=== PATIENT | male | born 1945 | race Caucasian/White ===

== ENCOUNTER 2021-03-05 13:22 | Day surgery (SDC) | payer MEDICARE, OTHER ==
[~2021-03-05] VITALS: Ht 175.3 cm; Wt 55.5 kg
[2021-03-05] MEDS ORDERED: ST. JOSEPH ASPI81 M1 (13:52)
[2021-03-05] MEDS ORDERED: ATOR10 (13:52)
--- NOTE | 2021-03-05 14:01 | NUR ---
03/05/21 1401 Pamela Lee 1 TRY RIGHT HAND BLEW
== END 2021-03-05 16:32 | disposition home or self-care (01) ==
LOC: ORSCSDS 13:22
PROVIDERS: Surgery
PROC: 0DBK8ZX Excision of Ascending Colon, Via Natural or Artificial Opening Endoscopic, Diagnostic (ICD-10-PCS; principal; 2021-03-05 14:45)
PROC: 0DBH8ZX Excision of Cecum, Via Natural or Artificial Opening Endoscopic, Diagnostic (ICD-10-PCS; principal; 2021-03-05 14:45)
PROC: 3E0H8KZ Introduction of Other Diagnostic Substance into Lower GI, Via Natural or Artificial Opening Endoscopic (ICD-10-PCS; principal; 2021-03-05 14:45)
PROC: 0DBM8ZX Excision of Descending Colon, Via Natural or Artificial Opening Endoscopic, Diagnostic (ICD-10-PCS; principal; 2021-03-05 14:45)
PROC: 0DBN8ZX Excision of Sigmoid Colon, Via Natural or Artificial Opening Endoscopic, Diagnostic (ICD-10-PCS; principal; 2021-03-05 14:45)
DX: R19.4 Change in bowel habit (principal); C82.00 Follicular lymphoma grade I, unspecified site; D12.0 Benign neoplasm of cecum; K64.8 Other hemorrhoids; F17.210 Nicotine dependence, cigarettes, uncomplicated; J44.9 Chronic obstructive pulmonary disease, unspecified; I10 Essential (primary) hypertension; Z79.899 Other long term (current) drug therapy
CPT/HCPCS: 88305; 88341; 88342; J0330; J0461; J2405; J2704; J7120

== ENCOUNTER 2022-01-05 10:50 | Inpatient (IN) | payer MEDICARE, OTHER ==
[~2022-01-05] VITALS: Ht 175.3 cm; Wt 46.7 kg
[~2022-01-05 10:50] MED LIST: ATOR10; ST. JOSEPH ASPI81 M1
[2022-01-05 11:23] LABS: Base Excess Venous 9.9 mmol/L; Bicarbonate Venous 28.6 mmol/L (24.0-30.0); PCO2 Venous 102 mmHg (38-42); PO2 Venous 42.2 mmHg (38-42)
[2022-01-05 11:26] LABS: pH Blood Venous 7.18 (7.34-7.37)
[2022-01-05 11:40] LABS: BASOPHILS ABSOLUTE AUTO 0.01 K/mm3 (0.00-0.23); BASOPHILS PERCENT AUTO 0 % (0-2); EOSINOPHILS PERCENT AUTO 0 % (0-6); Hematocrit 47.2 % (37.0-53.0); Hemoglobin 14.9 g/dL (13.5-17.5); IMMATURE GRAN ABSOLUTE AUTO 0.03 K/mm3 (0.00-0.10); IMMATURE GRAN PERCENT AUTO 0 % (0-1); LYMPHOCYTES ABSOLUTE AUTO 0.53 K/mm3 (0.84-5.20); LYMPHOCYTES PERCENT AUTO 5 % (21-46); MONOCYTES ABSOLUTE AUTO 0.42 K/mm3 (0.16-1.47); MONOCYTES PERCENT AUTO 4 % (4-13); Mean Corpuscular HGB 33.6 pg (26.0-34.0); Mean Corpuscular HGB Conc 31.6 g/dL (31.5-36.5); Mean Corpuscular Volume 106 fL (80-100); Mean Platelet Volume 9.1 fL (9.1-12.4); NEUTROPHILS PERCENT AUTO 90 % (41-73); Platelet Count 132 K/mm3 (150-400); RDW Coefficient Variation 11.9 % (11.7-14.2); RDW Standard Deviation 47.3 fL (35.1-46.3); Red Blood Cell Count 4.44 M/mm3 (4.30-5.90); White Blood Cell Count 10.19 K/mm3 (4.00-11.30)
[2022-01-05 11:52] LABS: Albumin, Blood 3.4 g/dL (3.4-5.0); Albumin/Globulin Ratio 0.8 (0.8-1.8); Bilirubin, Total 0.8 mg/dL (0.1-1.0); Bun/Creatinine Ratio 30.6 (12.0-20.0); Calcium, Blood 9.5 mg/dL (8.5-10.1); Creatinine, Blood 0.72 mg/dL (0.60-1.20); Potassium, Blood 4.5 mmol/L (3.5-5.5); Total Protein, Blood 7.4 g/dL (6.4-8.2)
[2022-01-05 12:32] LABS: SARS-Cov-2 (COVID-19) PCR, MMC NEGATIVE (NEGATIVE)
[2022-01-05 14:51] LABS: Base Excess Venous 9.1 mmol/L; Bicarbonate Venous 30.6 mmol/L (24.0-30.0); PCO2 Venous 66.7 mmHg (38-42); PO2 Venous 101 mmHg (38-42); pH Blood Venous 7.33 (7.34-7.37)
[2022-01-05] MEDS ORDERED: Ventolin/Prove6.7 GM (15:05)
[2022-01-05] MEDS ORDERED: Prinivil10 MG PO (15:06)
--- NOTE | 2022-01-05 17:07 | NUR ---
UPDATE PT ARRIVED TO UNIT FROM ER AT APPROXIMATELY 1600. BP STABLE. PT ARRIVED ON 4L NC WITH SATS >90%, BUT RR 38. PT PLACED ON BIPAP 12/6 FIO2 30%. PT TOLERATING BIPAP. DRY COUGH NOTED. PT DENIES ANY PAIN. PT ORIENTED TO UNIT. DAUGHTER AT BEDSIDE UPATED ON PLAN OF CARE. PT STATES HE HAS NOT BEEN EATING LATELY DUE TO SOB. PT IS CACHECTIC. PT ABLE TO REPOSITION HIMSELF IN BED. BED ALARM ON FOR SAFETY. PT ABLE TO VOID USING THE URINAL AT BEDSIDE. WILL CONTINUE TO MONITOR CLOSELY AND REPORT TO ONCOMING RN
--- NOTE | 2022-01-05 19:54 | NUR ---
ASSUMED PT CARE FORM [facility] ON DAY SHIFT. PT SITTING UP IN BED ON NC AT 4LPM. O2 SATS AT 95%. PT TACHYPNEIC, SUBCOSTAL RETRACTIONS NOTED WITH BREATHING. PT RETURNED BY BIPAP BY YON RESPIRATORY THERAPEST AND NEB TREATMENT GIVEN. WILL CONTINUE TO MONITOR. CALL LIGHT IN REACH.
--- NOTE | 2022-01-06 03:01 | NUR ---
PT TOLERATING BIPAP MASK FROM [id number] WITHOUT REMOVING IT. PT UP TO BS WITH 2 ASSIST. GAIT IS WEAK, DOES NOT FOLLOW DIRECTIONS WELL DUE TO [place]. PT HAD LARGE, FORMED BM. CLOTHING AND BEDDING CHANGED, BED BATH PERFORMED. PT TOLERATED. REQUESTING TO HAVE BREAK FROM BIPAP. CALL LIGHT IN REACH.
[2022-01-06 03:41] LABS: PCO2 Arterial 103 mmHg (35-45); PO2 Arterial 66.5 mmHg (80-100)
[2022-01-06 04:07] LABS: BASOPHILS ABSOLUTE AUTO 0.01 K/mm3 (0.00-0.23); BASOPHILS PERCENT AUTO 0 % (0-2); EOSINOPHILS PERCENT AUTO 0 % (0-6); Hematocrit 44.2 % (37.0-53.0); Hemoglobin 13.6 g/dL (13.5-17.5); IMMATURE GRAN ABSOLUTE AUTO 0.04 K/mm3 (0.00-0.10); IMMATURE GRAN PERCENT AUTO 1 % (0-1); LYMPHOCYTES ABSOLUTE AUTO 0.34 K/mm3 (0.84-5.20); LYMPHOCYTES PERCENT AUTO 4 % (21-46); MONOCYTES ABSOLUTE AUTO 0.21 K/mm3 (0.16-1.47); MONOCYTES PERCENT AUTO 2 % (4-13); Mean Corpuscular HGB 33.3 pg (26.0-34.0); Mean Corpuscular HGB Conc 30.8 g/dL (31.5-36.5); Mean Corpuscular Volume 108 fL (80-100); Mean Platelet Volume 9.4 fL (9.1-12.4); NEUTROPHILS ABSOLUTE AUTO 8.11 K/mm3 (1.96-9.15); NEUTROPHILS PERCENT AUTO 93 % (41-73); Platelet Count 137 K/mm3 (150-400); RDW Coefficient Variation 12.1 % (11.7-14.2); RDW Standard Deviation 48.9 fL (35.1-46.3); Red Blood Cell Count 4.09 M/mm3 (4.30-5.90); White Blood Cell Count 8.71 K/mm3 (4.00-11.30)
[2022-01-06 04:44] LABS: Albumin, Blood 3.2 g/dL (3.4-5.0); Albumin/Globulin Ratio 0.9 (0.8-1.8); Bilirubin, Total 0.5 mg/dL (0.1-1.0); Bun/Creatinine Ratio 42.8 (12.0-20.0); Calcium, Blood 8.8 mg/dL (8.5-10.1); Creatinine, Blood 0.68 mg/dL (0.60-1.20); Globulin, Blood 3.6 g/dL (2.2-4.0); Potassium, Blood 4.8 mmol/L (3.5-5.5); Total Protein, Blood 6.8 g/dL (6.4-8.2)
--- NOTE | 2022-01-06 05:27 | NUR ---
PT TOLERATING MASK WELL AFTER RECEIVING ATIVAN. RESTING IN BED WITH EYES CLOSED. AROUSED BY TOUCH. WILL MONITOR CALL LIGHT IN REACH.
[2022-01-06 08:06] LABS: PO2 Arterial 65.2 mmHg (80-100); pH Blood Arterial 7.26 (7.35-7.45)
--- NOTE | 2022-01-06 10:00 | NUR ---
UPDATE ASSUMED CARE AT APPROXIMATELY 0700. PT ALERT, BUT CONFUSED. PULLING AT BIPAP. PT ENCOURAGED TO KEEP BIPAP IN PLACE AND EDUCATED ON NEED. PT CONTINUES TO PULL MASK OFF AND PULL AT LINES. PT RESTLESS IN THE BED. PT NOT ANSWERING QUESTIONS, JUST STATING "I CAN'T BREATHE". ABG DONE BY RT AND RESULTS CALLED TO DR. Ferreira. DR. Ferreira AT BEDSIDE AND UPDATED ON PT STATUS. ORDERS FOR RESTRAINTS PROVIDED AND TO TRANSFER TO ICU. PT'S DAUGHTER TETE CALLED AND NOTIFIED. PT TAKEN OVER BY BED TO ICU 8. REPORT GIVEN TO TERRELL LUA
--- NOTE | 2022-01-06 10:11 | NUR ---
TRANSFER TO ICU/REPORT FROM [facility]ASS LUA PT TRANFERRED TO ICU AT 0930. PT NON COMPLIANT c BIPAP IN PCU. PT ARRIVES ON 2L VIA NC. PLACED ON BIPAP 16/8/30%. O2 SATS >93%. RR 20-30'S. TV 300-400. NON PRODUCTIVE COUGH. LUNGS DIM THROUGHOUT. PT RESPONSIVE TO VERBAL STIMULI. DIFFICULT TO UNDERSTAND D/T MASK. DIFFICULT TO REDIRECT. INTERMITTANTLY PULLING ON MASK. MEDICATED c ATIVAN ORDERED. SILVIO. PURPLE DISCOLORATION TO HANDS AND FEET BILATERALLY. WILL CONTINUE TO MONITOR.
--- NOTE | 2022-01-06 17:21 | NUR ---
SHIFT SUMMARY PT TRANSFERRED TO ICU THIS SHIFT FOR POSSIBLE RESTRAINTS/SEDATION R/T BIPAP. PT MEDICATED c ATIVAN X2 FOR AGITATION. TOLERATING BIPAP WELL. 16//35%. TV 300'S. RATE 20-30'S. LUNGS DIM THROUGHOUT. OCCASIONAL WET COUGH. PT RESPONSIVE TO VERBAL STIMULI. MOANS. DOES NOT ANSWER QUESTIONS OR FOLLOW COMMANDS. HUMPHREY. ST ON MONITOR, RATE 90-110'S. BP STABLE. PT CACHETIC, SCATTERED BRUISING. FOAM PAD PLACED ON SACRUM. PT INCONTINIENT OF URINE X 1. ATTENDS PLACED. WILL CONTINUE TO MONITOR UNTIL REPORT TO ONCOMING NURSE.
[2022-01-07 03:16] LABS: BASOPHILS ABSOLUTE AUTO 0.01 K/mm3 (0.00-0.23); BASOPHILS PERCENT AUTO 0 % (0-2); EOSINOPHILS PERCENT AUTO 0 % (0-6); Hematocrit 41.6 % (37.0-53.0); Hemoglobin 12.8 g/dL (13.5-17.5); IMMATURE GRAN ABSOLUTE AUTO 0.02 K/mm3 (0.00-0.10); IMMATURE GRAN PERCENT AUTO 0 % (0-1); LYMPHOCYTES ABSOLUTE AUTO 0.34 K/mm3 (0.84-5.20); LYMPHOCYTES PERCENT AUTO 5 % (21-46); MONOCYTES ABSOLUTE AUTO 0.36 K/mm3 (0.16-1.47); MONOCYTES PERCENT AUTO 5 % (4-13); Mean Corpuscular HGB 33.7 pg (26.0-34.0); Mean Corpuscular HGB Conc 30.8 g/dL (31.5-36.5); Mean Corpuscular Volume 110 fL (80-100); Mean Platelet Volume 8.7 fL (9.1-12.4); NEUTROPHILS ABSOLUTE AUTO 6.71 K/mm3 (1.96-9.15); NEUTROPHILS PERCENT AUTO 90 % (41-73); Platelet Count 125 K/mm3 (150-400); RDW Coefficient Variation 12.3 % (11.7-14.2); RDW Standard Deviation 50.1 fL (35.1-46.3); White Blood Cell Count 7.44 K/mm3 (4.00-11.30)
[2022-01-07 03:35] LABS: Albumin, Blood 2.7 g/dL (3.4-5.0); Albumin/Globulin Ratio 0.8 (0.8-1.8); Bilirubin, Total 0.4 mg/dL (0.1-1.0); Bun/Creatinine Ratio 49.8 (12.0-20.0); Calcium, Blood 8.4 mg/dL (8.5-10.1); Creatinine, Blood 0.64 mg/dL (0.60-1.20); Globulin, Blood 3.2 g/dL (2.2-4.0); Potassium, Blood 5.3 mmol/L (3.5-5.5); Total Protein, Blood 5.9 g/dL (6.4-8.2)
--- NOTE | 2022-01-07 06:19 | NUR ---
SHIFT SUMMARY: PT DOES NOT FOLLOW ANY COMMANDS, RESPONDS TO VERBAL AND PAINFUL STIMULI. ALL EXTREMITIES RESPONDS TO PAIN AND ABLE TO MOVE SPONTENOUSLY BUT NOT TO COMMAND. WAS AGITATED THROUGHOUT THE NIGHT, HAD TO PUT PT ON RESTRAINTS. WAS PULLING ON BIPAP MASK AND TRYING TO GET OUT OF BED PRIOR TO GIVING PRN ATIVAN. REMAINS ON BILAT SOFT WRIST RESTRAINTS BUT MORE RELAXED AND CALM. BIPAP MASK ON, FIO2 35% WITH RR 14. DOES HAVE A NONPRODUCTIVE COUGH. SATURATIONS ARE MID TO HIGH 90's SINUS TACH WITH HR 90-110's. NO EDEMA. AFEBRILE. BP STABLE. PULSES ARE PALPABLE. PT DOES FEEL COOLER TO TOUCH. NPO. NO BM. PLACED A CONDOM CATHETER OVERNIGHT DUE TO INCOTINENCE AND FREQUENCY. Q2H TURNS WITH LIFT.
--- NOTE | 2022-01-07 08:14 | NUR ---
Received report from Allyson LUA. He is non verbal and withdrawls from pain. He is on BIPAP 25/03 14 backup and 91%. He has bilateral 20ga IV's in FA's, RFA infusing NS at 100 ml/hr and LFA flushed and SL'd. He has condom catjh in place draining to gravity. He is in bilateral soft wrist restraints and removed skin and circulation checked and re-applied. Very active with bilateral LE's and pulls at restarints.
[2022-01-07 08:37] LABS: PO2 Arterial 71.1 mmHg (80-100)
[2022-01-07 08:38] LABS: PCO2 Arterial 81.8 mmHg (35-45); pH Blood Arterial 7.24 (7.35-7.45)
--- NOTE | 2022-01-07 10:00 | NUR ---
Dr Reynolds in room and doing assessment, he was making BIPAP changes and ended up back to original settings at 20% FiO2 and he is now back up to 30% r/t sats in the 80's. Repositioned and boosted, and is moving all extremities in bed. He still does not arouse or follow commands. VSS.
--- NOTE | 2022-01-07 11:30 | NUR ---
Patient resting intermitently, then thrashes in bed. He remains in restraint as he pulls at lines and reaches to remove BIPAP. His BIPAP settings remains at 16/8 sats 94%. He will open eye to loud verbal stimuli and partially squeeze by commnds , but nothing else. Condom cath remains in place and patent.
--- NOTE | 2022-01-07 15:30 | NUR ---
Patient not as agitated in bed, still pulling at lines and trying to reach mask. Bath given and linen change, repositioned and boosted in bed. Changed out to small condom cath as the other one fell off. He is currently BIPAP 16/8 30% and sats 96%. Patient trending down systolic and recuded Precedex to 0.2 mcg/kg/hr.
--- NOTE | 2022-01-07 18:20 | NUR ---
Patient resting quietly, family has been in and out most of day. His agitation has decreased slightly. He remains on BiPAP 16/8 30% and sats 92%. He remaisn SR 80-90's and systolic 80-100 with MAP's >65. He nabil bilateral 20ga IV in FA's and the 20ga RFA is infusing NS at 100 ml/hr and Precedex at 0.2 mcg/kg/hr, and ABX. He has not responded to verbal stimuli last neuro check and continues to not follow commands, with alot of moaning with care.
--- NOTE | 2022-01-07 19:04 | NUR ---
ASSUMPTION OF CARE PT IS ON BIPAP 25/03 WITH FIO2 30%. HE IS RECEIVING PRECEDEX 0.2MCG/KG/HR AND NS 100ML/HR. HE IS SLEEPING, OCCASIONALLY RESTLESS IN BED AND PULLING LIGHTLY AGAINST RESTRAINTS. HE IS IN SOFT WRIST RESTRAINTS TO PREVENT PULLING BIPAP OFF. HE IS NOT FOLLOWING ANY COMMANDS. NSR WITH RATE IN 90S, SBP 90S. CONDOM CATH IN PLACE. SEE SHIFT ASSESSMENT.
[2022-01-08 00:31] LABS: Source, Urine Foley catheter
[2022-01-08 00:33] LABS: Bilirubin, Urine Neg (Neg); Blood, Urine 4+ (Neg); Glucose Qualitative, Urine Neg (Neg); Ketones, Urine 3+ (Neg); Leukocyte Esterase, Urine Neg (Neg); Nitrite, Urine Neg (Neg); Protein, Urine 1+ (Neg); Urobilinogen, Urine NORM (Normal)
[2022-01-08 00:41] LABS: Appearance, Urine Clear (Clear); Color, Urine Yellow (P-Yellow)
--- NOTE | 2022-01-08 00:42 | NUR ---
UPDATE PT HAS BEEN AGITATED THROUGHOUT THE NIGHT. PRECEDEX TITRATED TO 0.7MCG/KG/HR. HE WAKENS FROM SLEEP, STARTLED AND PULLS AGAINST RESTRAINTS. HE IS NOT ALERT, CONTINUES TO NOT FOLLOW ANY COMMANDS. WHEN RESTRAINTS ARE OFF DURING CARE, PT IMMEDIATELY REACHES FOR BIPAP MASK, SPO2 PROBE, AND CARDIAC LEADS. URINE OUTPUT THIS SHIFT 250ML, CONDOM CATH LOOSE AND LEAKING URINE. MALIN PLACED AND QUICKLY DRAINED 200ML. BIPAP SETTINGS UNCHANGED, 16/8/30%. VSS.
[2022-01-08 00:43] LABS: Amorphous Light (0-Heavy); Bacteria Not Seen /hpf; Red Blood Cells, Urine 50-100 /hpf (0-2); Squamous Epithelial Cells Not Seen /hpf (Few); White Blood Cells, Urine Not Seen /hpf (0-5)
[2022-01-08 03:40] LABS: Hematocrit 39.6 % (37.0-53.0); Hemoglobin 12.3 g/dL (13.5-17.5); Mean Corpuscular HGB 33.5 pg (26.0-34.0); Mean Corpuscular HGB Conc 31.1 g/dL (31.5-36.5); Mean Corpuscular Volume 108 fL (80-100); Mean Platelet Volume 9.5 fL (9.1-12.4); Platelet Count 122 K/mm3 (150-400); RDW Coefficient Variation 12.1 % (11.7-14.2); RDW Standard Deviation 48.7 fL (35.1-46.3); Red Blood Cell Count 3.67 M/mm3 (4.30-5.90); White Blood Cell Count 6.76 K/mm3 (4.00-11.30)
[2022-01-08 03:59] LABS: Albumin, Blood 2.7 g/dL (3.4-5.0); Albumin/Globulin Ratio 0.9 (0.8-1.8); Bilirubin, Total 0.4 mg/dL (0.1-1.0); Bun/Creatinine Ratio 54.2 (12.0-20.0); Calcium, Blood 8.3 mg/dL (8.5-10.1); Creatinine, Blood 0.63 mg/dL (0.60-1.20); Magnesium, Blood 2.2 mg/dL (1.6-2.4); Phosphorus, Blood 1.5 mg/dL (2.5-4.9); Potassium, Blood 4.7 mmol/L (3.5-5.5); Total Protein, Blood 5.7 g/dL (6.4-8.2)
[2022-01-08 04:15] LABS: BAND PERCENT MAN 12 % (0-8); BASOPHILS PERCENT MAN 0 % (0-2); EOSINOPHILS PERCENT MAN 0 % (0-6); LYMPHOCYTES ABSOLUTE MAN 0.06 K/mm3 (0.84-5.20); LYMPHOCYTES PERCENT MAN 1 % (21-46); MONOCYTES ABSOLUTE MAN 0.06 K/mm3 (0.16-1.47); MONOCYTES PERCENT MAN 1 % (4-13); NEUTROPHILS ABSOLUTE MAN 6.62 K/mm3 (1.96-9.15); SEG NEUTROPHILS PERCENT MAN 86 % (41-73); TOTAL CELLS COUNTED 100
[2022-01-08 05:16] LABS: PCO2 Arterial 66 mmHg (35-45); PO2 Arterial 71 mmHg (80-100); pH Blood Arterial 7.34 (7.35-7.45)
--- NOTE | 2022-01-08 05:55 | NUR ---
SHIFT SUMMARY PT REMAINS ON BIPAP WITH SETTINGS 16/8/30%. HE IS RECEIVING PRECEDEX 0.2MCG/KG/HR AND NS 100ML/HR. HE HAS SLEPT ON AND OFF THROUGH THE NIGHT. HE WAKES UP STARTLED, AGITATED AND MOANING. OCCASIONALLY HE SAYS "I CAN'T BREATHE" BUT OTHERWISE MAKES INCOMPREHENSIBLE SOUNDS. HE DOES NOT FOLLOW ANY COMMANDS. HE PULLS AGAINST RESTRAINTS IN ATTEMPT TO PULL OFF BIPAP MASK AND SPO2 PROBE. MALIN PATENT AND DRAINING YELLOW/CLEAR URINE TO GRAVITY. SKIN BREAKDOWN BEGINNING ON BRIDGE OF NOSE DESPITE PROTECTIVE GEL PAD. VS HAVE REMAINED STABLE THROUGHOUT SHIFT. WILL REPORT TO ONCOMING RN.
--- NOTE | 2022-01-08 06:58 | NUR ---
Received report from Luann LUA. Patient agitated in bed and very restless. He is flopping his arms up and down and stating he can't breathe, sats 96% and 600 volumes. Increased Precedex to .7 mcg/kg/hr for agitation. He has 20ga LAC flushed and SL'd and 20ga RLFA that is infusing NS at 100 ml/hr and Precedex at 0.7 mcg/kg/hr. He has newly inserted 14 Fr James draining to gravity yellow urine. Readjusted BiPAP mask and gel tab as he is getting small amount of skin discoloration from mask pressure. Repositioned and boosted. He moans and yells and will not answer simple questions or follow commands.
--- NOTE | 2022-01-08 09:30 | NUR ---
Patient remains agitated and Precedex remains at 0.7 mcg/kg/hr and gave 0.25 mg of Ativan. Increased FiO2 to 35% as he felt he has air starvation. Talk with family and they are going to have conversation and possible comfort care later. His sore on nose getting bigger and he thrashes around. Repositioned and boosted in bed.
--- NOTE | 2022-01-08 11:32 | NUR ---
Patient has darrell slight more relaxed since medicated. Changed out mask as the boot was defective. Repositioned and boosted in bed. VSS. No changes to BiPAP settings and or Gtt's. Patient remains in restraints and pulls on them when awake./
--- NOTE | 2022-01-08 12:15 | NUR ---
CASE CONFERENCE: Spoke to bedside RN Enrique this am, and he reports pt's family is preparing to place pt on comfort care. The patient appears uncomfortable, and has needed restraints in order to keep him from pulling off the bipap mask. I also spoke with Dr. Lewis who believes the patient would greatly benefit from roxanol, due to his air hunger and non-verbal s/s of pain. Placed a call to pt's son Lino. After seeing the patient himself, speaking to Dr. Lewis and bedside RN Enrique, he is now prepared to place pt on comfort care. I received verbal orders from Dr. Lewis for comfort care. Orders placed and STONEY Nunez is aware.
--- NOTE | 2022-01-08 12:17 | NUR ---
Paillative care called and Dr placed comfort care orders in after speaking with family. Medicated per MAR with Roxanol 10 mg and disconnected BiPAP and placed on 4L O2 via NC and removed restraints.
--- NOTE | 2022-01-08 14:32 | NUR ---
Family at bedside. Medicated per oct with Roxanol 10 mg for air starvation. VSS. Dr Escobedo was in speaking with family. Patient calm and relaxed currently.
--- NOTE | 2022-01-08 18:51 | NUR ---
PT WAS BROUGHT UP AROUND 1600. HE ISVERY MOTTLED, SHALLOW BREATHING AND NON RESPONSIVE. FAMILY AT THE BEDSIDE.
--- NOTE | 2022-01-09 04:24 | NUR ---
SHIFT SUMMARY: PATIET IS ON COMFORT CARE. UNRESPONSIVE. LAYING IN BED WITH EYES CLOSED. NO S/S OF PAIN. PATIENT HAS INTERMITTENT GUPPY BREATHING. FAMILY AT BEDSIDE DENIES NEED FOR ANY INTERVENTION. WILL CALL IF HE APPEARS PAINFUL, RESTLESS, ANXIOUS, OR AGITATED. MALIN CATH IN PLACE MINIMAL URINE OUTPUT.
--- NOTE | 2022-01-09 10:45 | NUR ---
[facility] CAME TO ROOFER VINYL COATING PT IN ROOM. NO PERSONAL BELONGS IN ROOM. PT INFO WAS GIVEN TO EDER BEATTY WHO WAS IN CHARGE OF PICKING PT UP.
== END 2022-01-09 05:45 | DRG 189 ==
LOC: ER 10:50 → PCU 15:10 → ICUE 01-06 09:30 → MEDS 01-08 16:08
PROVIDERS: Family Medicine; Internal Medicine; Internal Medicine Critical Care Medicine; Student in an Organized Health Care Education/Training Program; ADMIT Internal Medicine
PROC: 5A09457 Assistance with Respiratory Ventilation, 24-96 Consecutive Hours, Continuous Positive Airway Pressure (ICD-10-PCS; principal; 2022-01-05)
DX: J96.21 Acute and chronic respiratory failure with hypoxia (principal); G93.41 Metabolic encephalopathy; J44.1 Chronic obstructive pulmonary disease with (acute) exacerbation; Z68.1 Body mass index [BMI] 19.9 or less, adult; E44.0 Moderate protein-calorie malnutrition; R64 Cachexia; K21.9 Gastro-esophageal reflux disease without esophagitis; Z66 Do not resuscitate; Z51.5 Encounter for palliative care; E78.5 Hyperlipidemia, unspecified; H91.90 Unspecified hearing loss, unspecified ear; F17.210 Nicotine dependence, cigarettes, uncomplicated; Z20.822 Contact with and (suspected) exposure to COVID-19; R45.1 Restlessness and agitation; R07.9 Chest pain, unspecified; J96.22 Acute and chronic respiratory failure with hypercapnia; Z98.84 Bariatric surgery status; Z79.82 Long term (current) use of aspirin; Z79.899 Other long term (current) drug therapy; Z78.1 Physical restraint status
CPT/HCPCS: 36415; 36600; 71045; 80053; 81001; 82330; 82803; 83735; 84100; 84145; 84484; 85025; 93005; 93010; 94640; 94644; 94660; 94664; 94760; 94762; 96365; 96375; 99285-25; A9270; J0456; J1650; J2060; J2930; J7030; J7050; U0004